=== PATIENT | female | born 1995 | race American Indian/Alaskan Native ===

== ENCOUNTER 2017-06-01 17:02 | Outpatient (CLI) | payer MEDICAID ==
[2017-06-01] MEDS ORDERED: LACTATED RINGERS 500 ML IV ONE (17:26)
[2017-06-01 17:50] VITALS: BP 98/64
[2017-06-01 18:51] LABS: Bilirubin,Urine NEG (Negative); Blood,Urine NEG (Negative); Ketones,Urine NEG (Negative); Leukocyte Esterase,Urine NEG (Negative); Nitrite,Urine NEG (Negative); Protein,Urine <15 mg/dL mg/dL (Negative); Urobilinogen,Urine < 2.0 mg/dL (<2.0)
== END 2017-06-01 20:25 | disposition home or self-care (01) ==
LOC: TRG 17:02
PROVIDERS: ATTEND Obstetrics & Gynecology
DX: O47.03 False labor before 37 completed weeks of gestation, third trimester (principal); Z3A.29 29 weeks gestation of pregnancy
CPT/HCPCS: 59025; 81001

== ENCOUNTER 2017-07-06 19:07 | Outpatient (CLI) | payer MEDICAID ==
[2017-07-06] MEDS ORDERED: LACTATED RINGERS 500 ML IV ONE (19:43)
[2017-07-06 20:59] LABS: Bacteria,Urine 1+ /HPF (Negative); Bilirubin,Urine NEG (Negative); Blood,Urine NEG (Negative); Ketones,Urine NEG (Negative); Leukocyte Esterase,Urine LG (Negative); Nitrite,Urine NEG (Negative); Protein,Urine <15 mg/dL mg/dL (Negative)
== END 2017-07-06 22:41 | disposition home or self-care (01) ==
LOC: TRG 19:07
PROVIDERS: ATTEND Obstetrics & Gynecology
DX: O62.9 Abnormality of forces of labor, unspecified (principal); Z3A.34 34 weeks gestation of pregnancy
CPT/HCPCS: 59025; 81001; 96360; J7120

== ENCOUNTER 2017-07-21 16:10 | Outpatient (CLI) | payer MEDICAID ==
[2017-07-21 16:54] LABS: Urine Drugs of Abuse Note Disclamer
[2017-07-21 17:12] LABS: Bilirubin,Urine NEG (Negative); Blood,Urine SM (Negative); Ketones,Urine NEG (Negative); Leukocyte Esterase,Urine LG (Negative); Mucus,Urine FEW /HPF; Nitrite,Urine NEG (Negative); Protein,Urine <15 mg/dL mg/dL (Negative); Urobilinogen,Urine < 2.0 mg/dL (<2.0)
[2017-07-21 17:18] VITALS: BP 106/65
== END 2017-07-21 17:54 | disposition home or self-care (01) ==
LOC: TRG 16:10
PROVIDERS: ATTEND Obstetrics & Gynecology
DX: O47.03 False labor before 37 completed weeks of gestation, third trimester (principal); Z3A.36 36 weeks gestation of pregnancy
CPT/HCPCS: 80307; 81001

== ENCOUNTER 2017-07-27 19:46 | Outpatient (CLI) | payer MEDICAID ==
[2017-07-27 20:23] VITALS: BP 101/58
[2017-07-27] MEDS ORDERED: VISTARIL PO ONE (20:55)
== END 2017-07-27 21:10 | disposition home or self-care (01) ==
LOC: TRG 19:46
PROVIDERS: ATTEND Obstetrics & Gynecology
DX: O47.1 False labor at or after 37 completed weeks of gestation (principal); Z3A.37 37 weeks gestation of pregnancy
CPT/HCPCS: 59025; Q0177

== ENCOUNTER 2017-08-01 23:11 | Outpatient (CLI) | payer MEDICAID | END 2017-08-02 00:21 | disposition home or self-care (01) | LOC: TRG 23:11 | PROVIDERS: ATTEND Obstetrics & Gynecology | DX: O62.9 Abnormality of forces of labor, unspecified (principal); Z3A.39 39 weeks gestation of pregnancy | CPT/HCPCS: 59025 ==

== ENCOUNTER 2017-10-22 13:12 | Emergency (ER) | payer MEDICAID ==
[2017-10-22] MEDS ORDERED: TYLENOL ONE (13:26)
[2017-10-22] MEDS ORDERED: TYLENOL PO ONE (13:28)
[2017-10-22] MEDS ORDERED: NACL 0.9% 1000 ML 2,000 ML IV ONE (15:06)
[2017-10-22] MEDS ORDERED: TORADOL IV ONE (15:06)
--- NOTE | 2017-10-22 15:07 | Emergency Department Report ---
ED General Adult HPI - General Chief complaint: Upper Respiratory Infection Stated complaint: FLU Time Seen by Provider: 10/22/17 14:53 Source: patient, RN notes reviewed Mode of arrival: Ambulatory Limitations: No Limitations - History of Present Illness Initial comments: This is a 21-year-old female who is previously unknown to this provider, she has no chronic medical conditions, and indicates that she has not . She presents to the ER with cough, body aches, myalgias, fevers, general weakness since 3:00 in the morning. Patient reports "I think I have the flu." Her symptoms are constant, they do not radiate anywhere, they have no exacerbating or relieving factors. Reports no sick contacts, reports no urinary symptoms. -: Gradual, hour(s) (since 3:00 in the morning) Location: back, left, right, upper extremity, lower extremity Radiation: non-radiation Quality: aching Consistency: constant Improves with: none Worsens with: none Associated Symptoms: cough, fever/chills, loss of appetite, malaise, syncope, weakness. denies: confusion, chest pain, nausea/vomiting, rash, seizure, shortness of breath - Related Data Previous Rx's Medication Instructions Recorded Last Taken Type Acetaminophen [Tylenol Arthritis] 650 mg PO Q6HR PRN #30 tablet.er 10/22/17 Unknown Rx Ibuprofen [Motrin] 600 mg PO Q8H PRN #30 tablet 10/22/17 Unknown Rx Ondansetron [Zofran Odt] 4 mg PO Q8HR PRN #20 tab.rapdis 10/22/17 Unknown Rx Oseltamivir [Tamiflu] 75 mg PO BID #10 cap 10/22/17 Unknown Rx Allergies Allergy/AdvReac Type Severity Reaction Status Date / Time amoxicillin Allergy Anaphylaxis Verified 10/22/17 13:22 Penicillins Allergy Anaphylaxis Verified 10/22/17 13:22 ED Review of Systems ROS: Stated complaint: FLU Other details as noted in HPI ED Past Medical Hx - Past Medical History Hx Hypertension: No Hx Diabetes: No Hx Deep Vein Thrombosis: No Hx Renal Disease: No Hx Sickle Cell Disease: No Hx Seizures: No Hx Asthma: No Hx HIV: No - Social History Smoking Status: Never Smoker Substance Use Type: None - Medications Home Medications: Home Medications Medication Instructions Recorded Confirmed Last Taken Type Acetaminophen [Tylenol Arthritis] 650 mg PO Q6HR PRN #30 tablet.er 10/22/17 Unknown Rx Ibuprofen [Motrin] 600 mg PO Q8H PRN #30 tablet 10/22/17 Unknown Rx Ondansetron [Zofran Odt] 4 mg PO Q8HR PRN #20 tab.rapdis 10/22/17 Unknown Rx Oseltamivir [Tamiflu] 75 mg PO BID #10 cap 10/22/17 Unknown Rx ED Physical Exam - General Limitations: No Limitations General appearance: alert, in no apparent distress - Head Head exam: Present: atraumatic, normocephalic - Eye Eye exam: Present: normal appearance, PERRL, EOMI. Absent: nystagmus - ENT ENT exam: Present: normal exam, normal orophraynx, mucous membranes moist, normal external ear exam - Neck Neck exam: Present: normal inspection, full ROM - Respiratory Respiratory exam: Present: normal lung sounds bilaterally. Absent: respiratory distress - Cardiovascular Cardiovascular Exam: Present: normal rhythm, tachycardia, normal heart sounds. Absent: systolic murmur, diastolic murmur, rubs, gallop - GI/Abdominal GI/Abdominal exam: Present: soft, normal bowel sounds. Absent: distended, tenderness, guarding, rebound, rigid, pulsatile mass - Extremities Exam Extremities exam: Present: normal inspection, full ROM, normal capillary refill. Absent: tenderness, pedal edema, joint swelling, calf tenderness - Back Exam Back exam: Present: normal inspection, full ROM. Absent: tenderness, CVA tenderness (R) - Neurological Exam Neurological exam: Present: alert, oriented X3, CN II-XII intact, normal gait, other (Extraocular movements intact. Tongue midline. No facial droop. Facial sensation intact to light touch in the V1, V2, V3 distribution bilaterally. 5 and 5 strength in 4 extremities.. Sensation is intact to light touch in 4 extremities.). Absent: motor sensory deficit, reflexes normal - Psychiatric Psychiatric exam: Present: normal affect, normal mood - Skin Skin exam: Present: warm, dry, intact, normal color. Absent: rash ED Course Vital Signs 10/22/17 10/22/17 10/22/17 13:22 15:18 17:26 Temperature 102.7 F H Pulse Rate 120 H 78 Respiratory 14 18 16 Rate Blood Pressure 100/66 Blood Pressure 87/50 [Left] O2 Sat by Pulse 100 100 Oximetry - Reevaluation(s) Reevaluation #1: 10/22/17 16:39 Differential diagnosis, including but not limited to: Influenza-like illness, pneumonia, viral syndrome Assessment and plan: 21-year-old female who is febrile, tachycardic with clinical influenza-like illness. Flu screen negative, but by history I have a very strong suspicion. Extensive discussion had with the patient. She declines Tamiflu medication out of concern for side effects. X-ray of the chest is negative. She denies urinary symptoms. Patient will be given IV fluids, Tylenol, Toradol. Patient will be reassessed for normalization of vital signs. Reevaluation #2: 10/22/17 17:29 patient feels improved. tachycardia improved. walking around without difficulty. bp of high 80s appreciated. However, patient is walking around without difficulty, and she is quite small in stature, and she is tolerating liquid feeds. Therefore, this is most likely physiologic for the patient. Patient will be discharged at this time, return precautions are reviewed. Endorses that she feels much better, she is walking, smiling and "I feel 100 percent better." Critical care attestation.: If time is entered above; I have spent that time in minutes in the direct care of this critically ill patient, excluding procedure time. ED Disposition Clinical Impression: Influenza-like illness Disposition: DC-01 TO HOME OR SELFCARE Is pt being admited?: No Does the pt Need Aspirin: No Condition: Stable Instructions: Influenza (ED) Additional Instructions: Take the medications as directed. Follow-up with primary care doctor within the next 7-10 days. Return to the ER right away with lethargy, irritability, projectile vomiting, change in mental status, confusion, inability to tolerate liquid feeds. Drink plenty of fluids, advance diet as tolerated. Prescriptions: Acetaminophen [Tylenol Arthritis] 650 mg PO Q6HR PRN #30 tablet.er PRN Reason: Pain Ibuprofen [Motrin] 600 mg PO Q8H PRN #30 tablet PRN Reason: Pain Ondansetron [Zofran Odt] 4 mg PO Q8HR PRN #20 tab.rapdis PRN Reason: Nausea Oseltamivir [Tamiflu] 75 mg PO BID #10 cap Referrals: PRIMARY MD CARLOS [Primary Care Provider] - 3-5 Days BREONNA PHILIP MD [Staff Physician] - 3-5 Days [facility] [Provider Group] - 3-5 Days
--- NOTE | 2017-10-22 17:23 | XRay Report ---
FINAL REPORT PROCEDURE: XR CHEST ROUTINE 2V TECHNIQUE: PA and lateral chest radiographs were obtained. CPT 71798 HISTORY: Viral syndrome. Cough. COMPARISON: No prior studies are available for comparison. FINDINGS: Heart: Normal. Mediastinum/Vessels: Normal. Lungs/Pleural space: Normal. Bony thorax: Slight wedging of the vertebral bodies at the thoracic lumbar junction. Other: IMPRESSION: No radiographic evidence of acute cardiopulmonary disease..
[2017-10-22 17:27] VITALS: BP 87/50
== END 2017-10-22 17:55 | disposition home or self-care (01) ==
LOC: ED 13:12
DX: J11.1 Influenza due to unidentified influenza virus with other respiratory manifestations (principal); Z88.0 Allergy status to penicillin; F50.89 Other specified eating disorder; R53.1 Weakness; R11.2 Nausea with vomiting, unspecified; Z88.1 Allergy status to other antibiotic agents
CPT/HCPCS: 71046; 87400; 96361; 96374; 99283; J1885; J7030